=== PATIENT | male | born 1960 | race Caucasian/White ===

== ENCOUNTER 2018-03-05 09:33 | Emergency (ER) | payer OTHER ==
[2018-03-05 10:49] VITALS: BP 153/79
--- NOTE | 2018-03-05 11:28 | UC ---
Dental HPI - HPI Summary HPI Summary: Left lower molars are decayed and broken to the gumline. Patient awoke yesterday with pain and swelling in his left lower gum. Patient denies fevers - History of Current Complaint Chief Complaint: UCDentalProblem Stated Complaint: ORAL COMPLAINT Time Seen by Provider: 03/05/18 11:28 Hx Obtained From: Patient Onset/Duration: Sudden Onset, Lasting Days - 1, Still Present Severity: Mild Pain Intensity: 2 Pain Scale Used: 0-10 Numeric Related History: Previous Dental Care on Same Tooth, Swelling - Allergies/Home Medications Allergies/Adverse Reactions: Allergies Allergy/AdvReac Type Severity Reaction Status Date / Time silver sulfadiazine Allergy Blisters Verified 03/05/18 10:50 PMH/Surg Hx/FS Hx/Imm Hx Previously Healthy: No - gout Cardiovascular History: Hypertension - Surgical History Surgical History: Yes Surgery Procedure, Year, and Place: b/l carpal tunnel surgery 1999 - Family History Known Family History: Positive: None - Social History Occupation: Employed Full-time Lives: With Family Alcohol Use: Weekly Substance Use Type: None Smoking Status (MU): Never Smoked Tobacco Review of Systems Constitutional: Negative Skin: Negative Eyes: Negative ENT: Dental Pain Respiratory: Negative Cardiovascular: Negative Gastrointestinal: Negative Genitourinary: Negative Motor: Negative Neurovascular: Negative Musculoskeletal: Negative Neurological: Negative Psychological: Negative Is Patient Immunocompromised?: No All Other Systems Reviewed And Are Negative: Yes Physical Exam Triage Information Reviewed: Yes Appearance: Well-Appearing, Pain Distress - mild, Obese Vital Signs: Initial Vital Signs Temp 98.5 F 03/05/18 10:39 Pulse 72 03/05/18 10:39 Resp 16 03/05/18 10:39 BP 153/79 03/05/18 10:39 Pulse Ox 100 03/05/18 10:39 Vital Signs Reviewed: Yes Eye Exam: Normal Eyes: Positive: Conjunctiva Clear ENT Exam: Normal ENT: Positive: Normal ENT inspection, Hearing grossly normal, Pharynx normal, TMs normal, Uvula midline. Negative: Nasal congestion, Trismus, Muffled voice, Hoarse voice, Sinus tenderness Dental Exam: Normal Neck exam: Normal Neck: Positive: Supple, Nontender, No Lymphadenopathy Respiratory Exam: Normal Respiratory: Positive: Chest non-tender, Lungs clear, Normal breath sounds, No respiratory distress, No accessory muscle use Cardiovascular Exam: Normal Cardiovascular: Positive: RRR, No Murmur, Pulses Normal, Brisk Capillary Refill Musculoskeletal Exam: Normal Musculoskeletal: Positive: Strength Intact, ROM Intact, No Edema Neurological Exam: Normal Neurological: Positive: Alert, Muscle Tone Normal Psychological Exam: Normal Skin Exam: Normal Dental Complaint Course/Dx - Course Course Of Treatment: amoxicillin, tylenol, ibuprofen, vicoden for more sever pain follow with dentist tonio on Tuesday - Differential Dx/Diagnosis Provider Diagnoses: dental abscess right lower jaw, hypertension in poor control Discharge - Sign-Out/Discharge Documenting (check all that apply): Discharge/Admit/Transfer - Discharge Plan Condition: Stable Disposition: HOME Prescriptions: Amoxicillin PO (*) [Amoxicillin 500 MG CAP*] 500 mg PO TID #30 cap Hydrocodone/Acetaminophen [Hydrocodone-Acetamin 5-325 mg] 1 each PO Q6HR PRN # 12 tablet MDD 4 PRN Reason: Pain - Severe Patient Education Materials: Dental Abscess (ED), Hypertension (ED), Toothache (ED) Referrals: Jackson Camarillo MD [Primary Care Provider] - 1 Week Additional Instructions: Please call the dentist on Tuesday for the first available appointment - Billing Disposition and Condition Condition: STABLE Disposition: HOME
== END 2018-03-05 11:42 | disposition home or self-care (01) ==
LOC: UCCORT 09:33
DX: M27.2 Inflammatory conditions of jaws (principal); I10 Essential (primary) hypertension; Z88.1 Allergy status to other antibiotic agents
CPT/HCPCS: 99212; G0463